=== PATIENT | male | born 1945 | race Caucasian/White ===

== ENCOUNTER 2019-09-24 01:26 | Outpatient (CLI) | payer OTHER, SELFPAY ==
--- NOTE | 2019-09-24 12:13 | DI.MRI_ITS ---
EXAM: MR PELVIS WO CLINICAL HISTORY: PROSTATE CA, S/P FIDUCIAL MARKER AND HYDROGEL PLACEMENT,PRE RADIATION PLANNING TECHNIQUE: Multiplanar multisequence MRI of Pelvis was performed. Volumetric Study Sequence. CONTRAST MATERIAL: None. COMPARISON: No exams were available for comparison FINDINGS: The exam was performed for purposes of radiation treatment planning. . DATA REPOSITORY:
== END 2019-09-24 01:46 ==
PROVIDERS: PCP Nurse Practitioner Family; Visit Provider Radiology Radiation Oncology
DX: C61 Malignant neoplasm of prostate (principal)
CPT/HCPCS: 72195

== ENCOUNTER 2019-12-01 01:45 | Outpatient (CLI) | payer OTHER, SELFPAY ==
[2019-12-01 16:42] LABS: ALT 27 U/L (16-63); AST 18 U/L (15-37); Albumin 3.9 g/dL (3.4-5.0); Alkaline Phosphatase 46 U/L (46-116); Bilirubin, Direct 0.13 mg/dL (0.00-0.20); Bilirubin, Total 0.4 mg/dL (0.2-1.0); Total Protein 6.7 g/dL (6.4-8.2)
== END 2019-12-01 02:05 ==
PROVIDERS: PCP Nurse Practitioner Family; Visit Provider Radiology Radiation Oncology
DX: C61 Malignant neoplasm of prostate (principal)
CPT/HCPCS: 36415; 80076